=== PATIENT | female | born 1960 | race Caucasian/White ===

== ENCOUNTER 2020-12-29 18:36 | Inpatient (IN) | payer MEDICAID, SELFPAY ==
[~2020-12-29] VITALS: Ht 167.6 cm; Wt 84.8 kg
--- NOTE | 2020-12-29 18:36 | NUR ---
BROUGHT INTO TRIAGE ROOM AND TRIAGED, DR INMAN CALLED TO SEE PT IMMEDIATELY. PT HAVING SEVERE SOB. SATS ARE 85% ON RA, AUDIBLE WHEEZING. PT REFUSING TO WEAR A MASK STATING SHE HAD HER SHOTS. STATES "I'M NOT PUTTING ON A MASK, I CAN'T BREATHE"
[2020-12-29 18:37] VITALS: BP_SYST 187
--- NOTE | 2020-12-29 18:41 | NUR ---
RESPIRATORY CALLED TO TRIAGE ROOM. ORDERS PLACED BY DR INMAN.
[2020-12-29] MEDS ORDERED: IPRATROPIUM/ALBUTEROL SULFATE 3 ML AMPUL.NEB (DUONEB) INH ONE (18:45)
--- NOTE | 2020-12-29 18:45 | NUR ---
DR. INMAN TO TRIAGE TO ASSESS.
--- NOTE | 2020-12-29 18:55 | NUR ---
COVID SWAB OBTAINED AND SENT TO LAB FOR ANALYSIS.
--- NOTE | 2020-12-29 19:16 | NUR ---
Patient wheeled to bed 4 for evaluation and treatment
--- NOTE | 2020-12-29 19:17 | NUR ---
PT AAO BUT IS LETHARGIC AND WEAK. PT REPORTING WORSENING RESPIRATORY DISTRESS TODAY. PT IS A HEAVY SMOKER AND IS CURRENTLY WHEEZING AND TRIPODING. SPO2 WAS NOTED TO BE 85-88% IN TRIAGE. PT PLACED ON O2 AND RESPIRATORY ADMINISTED BREATHING TREATMENT IN TRIAGE. PT GOWNED AND ATTACHED TO [employer] SUPERINTENDENT.
--- NOTE | 2020-12-29 19:29 | NUR ---
Lab to triage for blood draw.
[2020-12-29] MEDS ORDERED: methylPREDNISolone SOD SUCC/PF 62.5 MG/ML VIAL IVP ONE ×3 (19:30→21:15)
[2020-12-29 19:37] LABS: BASOPHILS # (AUTO) 0.1 K/uL (0.0-0.2); BASOPHILS % (AUTO) 0.3 % (0.0-2.0); EOSINOPHILS # (AUTO) 0.4 K/uL (0.0-0.4); EOSINOPHILS % (AUTO) 1.9 % (0.0-4.0); HEMATOCRIT 46.2 % (36-48); LYMPHOCYTES # (AUTO) 5.1 K/uL (1.0-5.5); LYMPHOCYTES % (AUTO) 27.2 % (20.5-51.5); MEAN CORPUSCULAR HEMOGLOBIN 29 pg (27-31); MEAN CORPUSCULAR HGB CONC 33 % (32-36); MEAN CORPUSCULAR VOLUME 90 fL (79.0-98.0); MONOCYTES # (AUTO) 0.8 K/uL (0.0-1.0); MONOCYTES % (AUTO) 4.1 % (1.7-9.3); NEUTROPHILS # (AUTO) 12.5 K/uL (1.8-7.7); NEUTROPHILS % (AUTO) 66.5 % (40.0-70.0); PLATELET COUNT (AUTO) 342 K/uL (130-430); RED BLOOD CELL COUNT(AUTO) 5.14 MIL/uL (4.2-6.2); RED CELL DISTRIBUTION WIDTH 14.6 % (9.0-15.0); WHITE BLOOD COUNT (AUTO) 18.8 K/uL (4.8-10.8)
--- NOTE | 2020-12-29 19:40 | NUR ---
R.T. PLACED PT ON BIPAP 18/8 WITH BACK UP RATE OF 20 @ 100% O2. PT SPO2 AT 99-100%.
--- NOTE | 2020-12-29 19:50 | NUR ---
PORTABLE CXR DONE AT BEDSIDE.
[2020-12-29 19:57] LABS: CALCIUM 9.5 mg/dL (8.4-11.0); CREATININE 1.31 mg/dL (0.55-1.30); POTASSIUM 4.2 mmol/L (3.5-5.1)
[2020-12-29 20:00] LABS: PROTHROMBIN TIME 10.4 SECS (9.5-12.5)
[2020-12-29] MEDS ORDERED: methylPREDNISolone SOD SUCC/PF 62.5 MG/ML VIAL ONE (20:05)
[2020-12-29] MEDS ORDERED: AZITHROMYCIN 500 MG in NS 250 ML IV ONE (20:15)
--- NOTE | 2020-12-29 20:15 | NUR ---
# 16 FR Pierre catheter with use of sterile technique. Immediate return of 150 cc urine noted. Bedside drainage bag placed below level of bladder. Urine sample collected and sent to lab. Pt tolerated procedure WELL. Patient unable to toilet self.
[2020-12-29] MEDS ORDERED: AZITHROMYCIN 500 MG/VIAL (ZITHROMAX) IV ONE (20:23)
[2020-12-29] MEDS ORDERED: cefTRIAXone 2 GM VIAL ONE (20:23)
[2020-12-29 20:28] LABS: BILIRUBIN,URINE NEGATIVE (NEGATIVE); BLOOD, URINE 1+ (NEGATIVE); COLOR,URINE YELLOW (YELLOW); GLUCOSE,URINE TRACE (NEGATIVE); KETONES,URINE NEGATIVE (NEGATIVE); LEUKOCYTE ESTERASE ,URINE NEGATIVE (NEGATIVE); NITRITE, URINE NEGATIVE (NEGATIVE); PROTEIN URINE 3+ (NEGATIVE); UROBILINOGEN,URINE 0.2 (0.2-1.0)
[2020-12-29] MEDS ORDERED: FUROSEMIDE 40 MG/4 ML VIAL IVP ONE (20:30)
[2020-12-29 20:35] LABS: CLARITY/URINE SLIGHTLY HAZY (CLEAR)
[2020-12-29 20:46] LABS: BACTERIA,URINE MODERATE /HPF (None Seen); FINE GRANULAR CASTS,URINE 0-10 /LPF (None Seen); HYALINE CASTS, URINE 0-10 /LPF (None Seen); MUCUS,URINE 1+ /LPF (None Seen)
[2020-12-29] MEDS ORDERED: ASPIRIN 81 MG TAB.CHEW PO SCH (21:00)
[2020-12-29] MEDS ORDERED: *HEPARIN PER PHARMACY XX ONE (21:00)
[2020-12-29] MEDS ORDERED: HEPARIN SODIUM,PORCINE 5,000 UNITS/ML VIAL IVP ONE (21:00)
[2020-12-29] MEDS ORDERED: ALBUTEROL SULFATE 0.083% 2.5 MG/3 ML VIAL.NEB INH PRN (21:00)
--- NOTE | 2020-12-29 21:00 | NUR ---
ADMIT ORDERS RECEIVED FROM DR. PRICE. PT TO BE ADMITTED TO ICU.
--- NOTE | 2020-12-29 21:24 | NUR ---
Geraldine AT BEDSIDE FOR ABG.
--- NOTE | 2020-12-29 21:30 | NUR ---
ASPIRIN 162MG PO ADMINISTERED PER T.O. DR. PRICE. MEDICATION NOT COMING UP ON EMAR.
--- NOTE | 2020-12-29 21:35 | NUR ---
PT TAKEN OFF BIPAP AND PLACED ON 4L OF O2 PER NC. PT TOLERATING WELL. SPO2 HOLDING 91-92% WITH RR OF 25.
[2020-12-29] MEDS ORDERED: ASPIRIN 81 MG TAB.CHEW ONE (21:36)
--- NOTE | 2020-12-29 21:45 | NUR ---
LAB AT BEDSIDE FOR BLOOD DRAW (TROPONIN).
--- NOTE | 2020-12-29 22:00 | NUR ---
PT 9IS RESTING QUIETLY IN NO DISTRESS. PT IS TOLERATING 4L O2 PER NC. SPO2 HOLDING AT 93% WITH RR OF 20.
[2020-12-29] MEDS ORDERED: PANTOPRAZOLE SODIUM 40 MG/VIAL (PROTONIX) IVP ONE (22:30)
[2020-12-29] MEDS ORDERED: ACETAMINOPHEN 325 MG TABLET PO PRN (22:30)
[2020-12-29] MEDS ORDERED: IPRATROPIUM/ALBUTEROL SULFATE 3 ML AMPUL.NEB (DUONEB) INH PRN (22:30)
--- NOTE | 2020-12-29 22:40 | NUR ---
DR. PRICE DOWNGRADED PT TO TELE. ORDERS RECEIVED.
--- NOTE | 2020-12-29 22:41 | NUR ---
Spoke with Dr. Penaloza - change admission order to TELE.
--- NOTE | 2020-12-29 23:45 | NUR ---
Transfer to TELE via ACLS protocol. Licensed nurse present. IV present no signs or symptoms of infiltration.
--- NOTE | 2020-12-29 23:45 | NUR ---
Patient will be admitted to care of DR. PRICE. Admitted to TELE unit. Will go to room 130A. Belongings list completed. Complete and up to date summary report printed. SBAR report to be given at bedside with opportunity for questions.
[2020-12-30 00:05] VITALS: BP_SYST 142
--- NOTE | 2020-12-30 00:05 | NUR ---
ADMISSION NOTE Received patient from ER via lewralon, received report from CHARLEEN Mcdonough. Patient admitted with diagnosis of ACUTE RESPIRATORY DISTRESS, STEMI. Patient oriented to hospital routine, call light, toileting and safety-patient verbalized understanding.
--- NOTE | 2020-12-30 00:10 | NUR ---
INITIAL RN NOTES Received pt from ED, pt asleep easily awakens, VSS, afebrile. Pt denies SOB or Chest pain. O2 sat 96% on 4L NC. IV saline lock R. hand 20G clear and patent. Pierre catheter draining to gravity with clear, yellow urine, good output. Oriented pt to call light use, verbalized understanding. Call light within reach. Bed low, locked, siderails up x2, alarm on. To monitor.
[2020-12-30] MEDS: methylPREDNISolone SOD SUCC/PF 62.5 MG/ML VIAL IVP SCH ×5 (01:27→23:44)
[2020-12-30 06:32] LABS: BASOPHILS % (AUTO) 0.1 % (0.0-2.0); HEMATOCRIT 42.2 % (36-48); HEMOGLOBIN 13.8 g/dL (12.0-16.0); LYMPHOCYTES # (AUTO) 0.6 K/uL (1.0-5.5); LYMPHOCYTES % (AUTO) 3.9 % (20.5-51.5); MEAN CORPUSCULAR HEMOGLOBIN 29 pg (27-31); MEAN CORPUSCULAR HGB CONC 33 % (32-36); MEAN CORPUSCULAR VOLUME 88 fL (79.0-98.0); MONOCYTES # (AUTO) 0.1 K/uL (0.0-1.0); MONOCYTES % (AUTO) 0.6 % (1.7-9.3); NEUTROPHILS # (AUTO) 13.9 K/uL (1.8-7.7); NEUTROPHILS % (AUTO) 95.4 % (40.0-70.0); PLATELET COUNT (AUTO) 279 K/uL (130-430); RED CELL DISTRIBUTION WIDTH 14.4 % (9.0-15.0); WHITE BLOOD COUNT (AUTO) 14.5 K/uL (4.8-10.8)
--- NOTE | 2020-12-30 06:50 | NUR ---
Closing notes Pt asleep easily awakens, no c/o SOB or chest pain. O2 sat 96% on 4L NC. IV saline lock R. hand 20G clear and patent. Pierre catheter draining to gravity with clear, yellow urine, good output. Oriented pt to call light use, verbalized understanding. Call light within reach. Bed low, locked, siderails up x2, alarm on. To endorse to AM nurse.
--- NOTE | 2020-12-30 06:56 | NUR ---
Nutrition Update Fabricio Scale 18 noted. Pt admitted for SOB Diet: Cardiac BMI: 30.2 kg/m2 RD to follow per nutrition care standards.
[2020-12-30 07:10] LABS: CALCIUM 8.6 mg/dL (8.4-11.0); CREATININE 1.34 mg/dL (0.55-1.30); FREE T4 (FREE THYROXINE) 1.1 ng/dl (0.8-1.5); POTASSIUM 3.5 mmol/L (3.5-5.1); TOTAL BILIRUBIN 0.3 mg/dL (0.0-1.0)
--- NOTE | 2020-12-30 07:58 | NUR ---
Opening note patient resting in bed, a/ox4, denies pain, no distress, on 4L via nasal cannula, titrated down to 3L NC oxygen saturation is 96% at this time, IV line is patent, no s/s of infiltration, Pierre Catheter in place draining to gravity, educated patient on plan of care and call light system, she verbalized understanding, bed in lowest position, three side rails up, bed alarm on, fall and aspiration precautions in place.
--- NOTE | 2020-12-30 08:20 | NUR ---
Dr. Gonzales rounds assessed and spoke with patient at bedside, inquired if patient requires Heparin gtt, there is an order Heparin per pharmacy but no other Heparin orders, will follow up with any new orders.
[2020-12-30 08:23] VITALS: BP_SYST 152
[2020-12-30] MEDS: ASPIRIN 81 MG TABLET(ECOTRIN) PO SCH (08:25)
[2020-12-30] MEDS: PANTOPRAZOLE SODIUM 40 MG/VIAL (PROTONIX) IVP SCH ×2 (08:25→21:43)
--- NOTE | 2020-12-30 08:38 | NUR ---
Urine drug screen obtained from Pierre Catheter - sent to lab.
[2020-12-30 09:33] LABS: BARBITURATE, URINE NEGATIVE (NEG <=200); BENZODIAZEPINE, URINE NEGATIVE (NEG <=150); CANNABINOID, URINE NEGATIVE (NEG <=50); COCAINE, URINE NEGATIVE (NEG <=150); METHAMPHETAMINES SCREEN,URINE POSITIVE (NEG <=500); OPIATE, URINE NEGATIVE (NEG <=100); PHENCYCLIDINE SCREEN,URINE NEGATIVE (NEG <=25); UR TRICYCLIC ANTIDEPRESSANTS NEGATIVE (NEG <=300); URINE AMPHETAMINE POSITIVE (NEG <=500); URINE METHADONE NEGATIVE (NEG <=200); URINE OXYCODONE SCREEN NEGATIVE (NEG <=100); URINE PROPOXYPHENE SCREEN NEGATIVE (NEG <=300)
[2020-12-30] MEDS ORDERED: FUROSEMIDE 40 MG/4 ML VIAL IVP ONE (10:30)
[2020-12-30] MEDS ORDERED: METOPROLOL SUCCINATE 50 MG TAB.SR.24H (TOPROL XL) PO ONE (10:30)
[2020-12-30] MEDS: IPRATROPIUM/ALBUTEROL SULFATE 3 ML AMPUL.NEB (DUONEB) INH SCH ×3 (11:58→22:03)
[2020-12-30 14:51] VITALS: BP_SYST 154
[2020-12-30 16:00] VITALS: BP_SYST 143
--- NOTE | 2020-12-30 18:36 | NUR ---
Closing note, patient resting in bed, denies pain, no distress, on 3L via nasal cannula, IV line is patent, no s/s of infiltration, Pierre Catheter in place draining to gravity, all needs met, bed in lowest position, three side rails up, call light within reach, bed alarm on, fall and aspiration precautions in place.
--- NOTE | 2020-12-30 19:15 | NUR ---
OPENING NOTES: Received patient report from morning shift rn. Patient in bed, AAOx4, breathing evenly and nonlabored on 3L of O2 via NC, HOB elevated, no s/s of distress. Patient has an IV on the right hand, 20G, patent, benign, and flushing. No s/s of infection or infiltration. Patient has a quick catheter secured and draining by gravity. Educated patient on plan of care and call light use. Patient verbalized understanding with return demonstration. Fall/safety precaution. Will continue to monitor.
[2020-12-30 20:00] VITALS: BP_SYST 147
[2020-12-30] MEDS: cefTRIAXone 1 GM in D5W 50 ML IV SCH (21:44)
[2020-12-30] MEDS: AZITHROMYCIN 500 MG in NS 250 ML IV SCH (21:44)
[2020-12-31] VITALS: BP_SYST 138
--- NOTE | 2020-12-31 | NUR ---
ROUNDS: Patient in bed, eyes closed breathing evenly and nonlabored on 3L of O2 via NC, no s/s of distress. All needs met at this time. Will continue to monitor.
[2020-12-31] MEDS: methylPREDNISolone SOD SUCC/PF 62.5 MG/ML VIAL IVP SCH ×2 (06:00→11:46)
--- NOTE | 2020-12-31 06:52 | NUR ---
CLOSING NOTES: Patient in bed, eyes closed breathing evenly and nonlabored on 3L of O2 via NC, HOB elevated, no s/s of distress. Patient has an IV on the right hand, 20G, patent, benign, and flushing. No s/s of infection or infiltration. Patient has a quick catheter secured and draining by gravity. Fall/safety precaution. Will continue to monitor and endorse care to morning shift nurse.
[2020-12-31] MEDS: IPRATROPIUM/ALBUTEROL SULFATE 3 ML AMPUL.NEB (DUONEB) INH SCH ×5 (07:00→23:20)
[2020-12-31 07:12] LABS: HEMATOCRIT 39.9 % (36-48); LYMPHOCYTES # (AUTO) 0.8 K/uL (1.0-5.5); MEAN CORPUSCULAR HEMOGLOBIN 29 pg (27-31); MEAN CORPUSCULAR HGB CONC 33 % (32-36); MEAN CORPUSCULAR VOLUME 88 fL (79.0-98.0); MONOCYTES # (AUTO) 0.3 K/uL (0.0-1.0); MONOCYTES % (AUTO) 1.2 % (1.7-9.3); NEUTROPHILS # (AUTO) 26.3 K/uL (1.8-7.7); PLATELET COUNT (AUTO) 277 K/uL (130-430); RED BLOOD CELL COUNT(AUTO) 4.55 MIL/uL (4.2-6.2); RED CELL DISTRIBUTION WIDTH 14.4 % (9.0-15.0); WHITE BLOOD COUNT (AUTO) 27.5 K/uL (4.8-10.8)
--- NOTE | 2020-12-31 07:55 | NUR ---
Opening note patient resting in bed, a/ox4, denies pain, no distress, on 3L via nasal cannula, oxygen saturation is 97% at this time, IV line is patent, no s/s of infiltration, Pierre Catheter in place draining to gravity, educated patient on plan of care and call light system, she verbalized understanding, bed in lowest position, three side rails up, bed alarm on, fall and aspiration precautions in place.
[2020-12-31 08:00] VITALS: BP_SYST 148
[2020-12-31] MEDS: ASPIRIN 81 MG TABLET(ECOTRIN) PO SCH (08:17)
[2020-12-31] MEDS: METOPROLOL SUCCINATE 50 MG TAB.SR.24H (TOPROL XL) PO SCH (08:17)
[2020-12-31] MEDS: PANTOPRAZOLE SODIUM 40 MG/VIAL (PROTONIX) IVP SCH ×2 (08:17→20:16)
[2020-12-31] MEDS ORDERED: FUROSEMIDE 40 MG/4 ML VIAL IVP SCH (09:00)
[2020-12-31 10:25] LABS: ALBUMIN 2.8 g/dL (3.4-4.8); CALCIUM 8.6 mg/dL (8.4-11.0); CREATININE 1.32 mg/dL (0.55-1.30); POTASSIUM 3.5 mmol/L (3.5-5.1); TOTAL BILIRUBIN 0.2 mg/dL (0.0-1.0)
[2020-12-31 12:19] VITALS: BP_SYST 159
--- NOTE | 2020-12-31 14:28 | NUR ---
Dr. Tremaine stevens assessed patient, informed MD of positive Urine Culture Gram Negative Bacilli - susceptibility report pending. Informed MD that patient is now on 2L via nasal cannula oxygen saturation is 96%.
[2020-12-31 15:27] LABS: NEUTROPHILS % (AUTO) 95.8 % (40.0-70.0)
--- NOTE | 2020-12-31 15:40 | NUR ---
Ambulation on Room Air at rest on room air, patient's oxygen saturation is 95%, while ambulating on room air the oxygen saturation is 93%, at rest again oxygen saturations is 92-93%, patient is not short of breath.
[2020-12-31 16:30] VITALS: BP_SYST 146
[2020-12-31] MEDS: predniSONE 20 MG TABLET PO SCH (16:59)
--- NOTE | 2020-12-31 18:16 | NUR ---
D/C Pierre Catheter explained procedure to the patient, she verbalized understanding and tolerated well, catheter tip intact upon removal.
--- NOTE | 2020-12-31 19:15 | NUR ---
OPENING NOTES: Received patient report from morning shift nurse. Patient in bed AAOx4, breathing evenly and nonlabored on room air, HOB elevated, no s/s of distress. Patient has an IV on the right hand 20G, SL. No s/s of infection or infiltration. Educated patient on plan of care. Fall/safety precaution. Bed armed, locked, and at lowest position. Will continue to monitor.
--- NOTE | 2020-12-31 19:20 | NUR ---
Closing note SBAR report given to Noni VILLASEÑOR.
[2020-12-31 20:00] VITALS: BP_SYST 153
[2020-12-31] MEDS: FAMOTIDINE 20 MG TABLET PO SCH (20:16)
[2020-12-31] MEDS: cefTRIAXone 1 GM in D5W 50 ML IV SCH (20:16)
[2020-12-31] MEDS: AZITHROMYCIN 500 MG in NS 250 ML IV SCH (20:17)
[2021-01-01] VITALS: BP_SYST 143
--- NOTE | 2021-01-01 | NUR ---
IV INSERTION: Right hand 20G IV site infiltrated. Discontinued. Inserted a new IV on the right hand 22G, SL. No s/s of infection or infiltration.
--- NOTE | 2021-01-01 06:35 | NUR ---
CLOSING NOTES: Patient in bed, eyes closed, breathing evenly and nonlabored on room air, HOB elevated, no s/s of distress. Patient has an IV on the right hand 22G, SL. No s/s of infection or infiltration. Fall/safety precaution. Bed armed, locked, and at lowest position. Will continue to monitor and endorse care to morning shift nurse. All needs met at this time.
[2021-01-01 06:40] LABS: HEMATOCRIT 39.4 % (36-48); HEMOGLOBIN 13.1 g/dL (12.0-16.0); LYMPHOCYTES # (AUTO) 1.4 K/uL (1.0-5.5); LYMPHOCYTES % (AUTO) 5.8 % (20.5-51.5); MEAN CORPUSCULAR HEMOGLOBIN 29 pg (27-31); MEAN CORPUSCULAR HGB CONC 33 % (32-36); MEAN CORPUSCULAR VOLUME 87 fL (79.0-98.0); MONOCYTES # (AUTO) 0.8 K/uL (0.0-1.0); MONOCYTES % (AUTO) 3.3 % (1.7-9.3); NEUTROPHILS # (AUTO) 21.5 K/uL (1.8-7.7); NEUTROPHILS % (AUTO) 90.9 % (40.0-70.0); PLATELET COUNT (AUTO) 292 K/uL (130-430); RED BLOOD CELL COUNT(AUTO) 4.54 MIL/uL (4.2-6.2); RED CELL DISTRIBUTION WIDTH 14.4 % (9.0-15.0); WHITE BLOOD COUNT (AUTO) 23.7 K/uL (4.8-10.8)
[2021-01-01] MEDS: IPRATROPIUM/ALBUTEROL SULFATE 3 ML AMPUL.NEB (DUONEB) INH SCH ×5 (07:00→23:20)
[2021-01-01 07:04] LABS: CALCIUM 8.6 mg/dL (8.4-11.0); CREATININE 1.28 mg/dL (0.55-1.30); POTASSIUM 3.3 mmol/L (3.5-5.1)
--- NOTE | 2021-01-01 07:15 | NUR ---
RN OPENING NOTE PATIENT APPEARS TO BE RESTING WITH BOTH EYES CLOSED NO SIGNS OF ANY DISTRESS. BREATHING IS EQUAL AND NON LABORED. REPORT WAS ENDORSED BY NIGHT NURSE. NO OTHER NEEDS AT THIS TIME. PATIENT HAS ALL SAFETY PRECAUTIONS IN PLACE.
[2021-01-01 08:04] VITALS: BP_SYST 150
[2021-01-01] MEDS: predniSONE 20 MG TABLET PO SCH ×2 (08:09→17:52)
[2021-01-01] MEDS: ASPIRIN 81 MG TABLET(ECOTRIN) PO SCH (08:09)
[2021-01-01] MEDS: FAMOTIDINE 20 MG TABLET PO SCH ×2 (08:09→21:21)
[2021-01-01] MEDS: METOPROLOL SUCCINATE 50 MG TAB.SR.24H (TOPROL XL) PO SCH (08:09)
[2021-01-01] MEDS: PANTOPRAZOLE SODIUM 40 MG/VIAL (PROTONIX) IVP SCH ×2 (08:10→21:20)
--- NOTE | 2021-01-01 08:17 | NUR ---
MEDICATION PATIENTS SCHEDULED MEDICATION GIVEN PER ORDER. PATIENT IS AWAKE AND ALERT SITTING UP IN BED EATING BREAKFAST. PATIENT HAS NO COMPLAINTS AT THIS TIME. PATIENT SHOWS NO SIGNS OF ANY SOB. PATIENT EDUCATE CARETAKER LIGHT, CALL LIGHT IS WITH PATIENT. NO OTHER NEEDS AT THIS TIME. Addendum: 01/01/21 at 0819 by Mireya Arellano RN EDUCATED TO USE CALL LIGHT FOR ASSISTANCE TO BATHROOM PATIENT VERBALIZED UNDERSTANDING.
--- NOTE | 2021-01-01 11:00 | NUR ---
INFORMED OF ELEVATED TROPONIN NO FURTHER ORDERS WERE GIVEN. PATIENT IS AWAKE AND ALERT LAYING IN BED. PATIENT AMBULATED TO BATHROOM AND BACK TO BED GAIT IS STEADY. EDUCATED TO USE CALL LIGHT FOR ASSISTANCE. CALL LIGHT IS WITH HER. NO OTHER NEEDS AT THIS TIME.
[2021-01-01 12:00] VITALS: BP_SYST 144
[2021-01-01] MEDS ORDERED: POTASSIUM CHLORIDE 20 MEQ TAB.PRT.SR PO ONE (13:00)
--- NOTE | 2021-01-01 14:30 | NUR ---
MEDICATION PATIENTS SCHEDULED MEDICATION GIVEN PER ORDER. PATIENT IS AWAKE AND ALERT SITTING IN BED. PATIENT HAS NO COMPLAINTS AT THIS TIME. CALL LIGHT IS WITH HER EDUCATED TO USE FOR ASSISTANCE.CALL LIGHT IS WITH HER. NO OTHER NEEDS AT THIS TIME.
[2021-01-01 16:00] VITALS: BP_SYST 143
--- NOTE | 2021-01-01 16:00 | NUR ---
rn rounding patient is laying in bed no signs of any distress, breathing is equal and non labored. Patient has all safety precautions in place. educated to use call light for assistance. call light is with her. no other needs at this time.
--- NOTE | 2021-01-01 18:54 | NUR ---
rn closing note patient is awake and alert no signs of any distress, breathing is equal and non labored. patient has all safety precautions in place. call light is with her educated to use for assistance. no other needs at this time.
--- NOTE | 2021-01-01 19:40 | NUR ---
OPENING NOTES PATIENT SITTING IN BED WITH RESPIRATIONS EVEN AND UNLABORED ON RA. NO SIGNS OF DISTRESS NOTED. PT IS AMBULATORY AND JUST FINISHED WALKING BACK FROM THE RESTROOM. GAIT STEADY. LINENS CHANGED. RIGHT HAND 22G DRESSING CLEAN, DRY AND INTACT. SALINE LOCKED. BED IN LOWEST AND LOCKED POSITION. CALL LIGHT WITHIN REACH. SAFETY PRECAUTIONS IN PLACE. WILL CONTINUE TO MONITOR.
[2021-01-01 20:20] VITALS: BP_SYST 146
[2021-01-01] MEDS: AZITHROMYCIN 500 MG in NS 250 ML IV SCH (21:21)
[2021-01-01] MEDS: cefTRIAXone 1 GM in D5W 50 ML IV SCH (21:22)
[2021-01-02 00:22] VITALS: BP_SYST 159
[2021-01-02] MEDS: IPRATROPIUM/ALBUTEROL SULFATE 3 ML AMPUL.NEB (DUONEB) INH SCH ×4 (03:00→15:00)
--- NOTE | 2021-01-02 03:39 | NUR ---
ROUNDS PATIENT SLEEPING IN BED. RESPIRATIONS EVEN AND UNLABORED ON RA. NO SIGNS OF DISTRESS NOTED. BED IN LOWEST AND LOCKED POSITION. CALL LIGHT WITHIN REACH. RIGHT HAND IV SALINE LOCKED. WILL CONTINUE TO MONITOR.
--- NOTE | 2021-01-02 06:40 | NUR ---
CLOSING NOTES PATIENT SLEEPING IN BED WITH RESPIRATIONS EVEN AND UNLABORED ON RA. NO SIGNS OF DISTRESS NOTED. RIGHT HAND 22G IV PATENT AND INTACT. NO SIGNS OF INFILTRATION NOTED. ALL NEEDS MET THROUGH THE NIGHT. BED IN LOWEST AND LOCKED POSITION. CALL LIGHT WITHIN REACH. SAFETY PRECAUTIONS IN PLACE. WILL ENDORSE TO DAY RN.
[2021-01-02 07:04] LABS: CALCIUM 8.5 mg/dL (8.4-11.0); CREATININE 1.31 mg/dL (0.55-1.30); POTASSIUM 4.2 mmol/L (3.5-5.1)
[2021-01-02 07:49] LABS: BASOPHILS # (AUTO) 0.2 K/uL (0.0-0.2); BASOPHILS % (AUTO) 1.1 % (0.0-2.0); HEMOGLOBIN 12.9 g/dL (12.0-16.0); LYMPHOCYTES # (AUTO) 2.4 K/uL (1.0-5.5); LYMPHOCYTES % (AUTO) 13.2 % (20.5-51.5); MEAN CORPUSCULAR HEMOGLOBIN 29 pg (27-31); MEAN CORPUSCULAR HGB CONC 33 % (32-36); MEAN CORPUSCULAR VOLUME 88 fL (79.0-98.0); MONOCYTES # (AUTO) 0.9 K/uL (0.0-1.0); MONOCYTES % (AUTO) 5.2 % (1.7-9.3); NEUTROPHILS # (AUTO) 14.4 K/uL (1.8-7.7); NEUTROPHILS % (AUTO) 80.5 % (40.0-70.0); PLATELET COUNT (AUTO) 275 K/uL (130-430); RED BLOOD CELL COUNT(AUTO) 4.44 MIL/uL (4.2-6.2); RED CELL DISTRIBUTION WIDTH 14.7 % (9.0-15.0); WHITE BLOOD COUNT (AUTO) 17.9 K/uL (4.8-10.8)
[2021-01-02] MEDS: PANTOPRAZOLE SODIUM 40 MG/VIAL (PROTONIX) IVP SCH (09:05)
[2021-01-02] MEDS: ASPIRIN 81 MG TABLET(ECOTRIN) PO SCH (09:06)
[2021-01-02] MEDS: predniSONE 20 MG TABLET PO SCH (09:06)
[2021-01-02] MEDS: METOPROLOL SUCCINATE 50 MG TAB.SR.24H (TOPROL XL) PO SCH (09:06)
[2021-01-02] MEDS: FAMOTIDINE 20 MG TABLET PO SCH (09:06)
--- NOTE | 2021-01-02 09:07 | NUR ---
OPENING NOTES PATIENT AAO 4. LUNGS BILATERALLY CLEAR. ABDOMEN SOFT AND NON DISTENDED. HAS IV ACCESS ON THE RIGHT HAND #22. SALINE LOCK. PATENT/DRY. CALL LIGHTS WITHIN REACH. BED LOW POSITION ALARMED AND LOCKED.
--- NOTE | 2021-01-02 09:12 | NUR ---
SEEN BY DR LE
[2021-01-02 09:17] VITALS: BP_SYST 155
[2021-01-02] MEDS ORDERED: PRED10TA PO (11:14)
[2021-01-02] MEDS ORDERED: Aspirin Ec PO (11:14)
[2021-01-02 11:52] VITALS: BP_SYST 150
[2021-01-02 12:10] VITALS: BP_SYST 150
--- NOTE | 2021-01-02 12:28 | NUR ---
Referral for home health sent to [facility] Addendum: 01/02/21 at 1237 by Noemy Araiza RN Referral also sent to [facility]
[2021-01-02 14:22] VITALS: BP_SYST 150
--- NOTE | 2021-01-02 14:30 | NUR ---
PER [facility] RISK CONTROL CONSULTANT, PATIENT CAN GO HOME AND INFORMED THE PATIENT. DISCHARGE SUMMARY INSTRUCTION GIVEN TO THE PATIENT AND VERBALIZED SHE UNDERSTOOD, TO FOLLOW UP CARE WITH PCP, CARDIOLOGY, PULMONARY MD TO SCHEDULE WITHIN ONE WEEK. PRESCRIPTION OF ASPIRIN PO AND PREDNISONE PO, WAS EXPLAINED TO THE PATIENT, INDICATION, DOSE AND FREQUENCY AND CONTINUE ALL OHTER MEDICATION. FOLLOW UP ALSO WITH HOME HEALTH AND NEBULIZER.
--- NOTE | 2021-01-02 15:00 | NUR ---
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 REFUSED TO EAT LUNCH. REFUSED TO HAVE WHEELCHAIR WHILE GOING TO THE LOBBY. [facility] I D BAND REMOVED. IV ACCESS REMOVED. DISCHARGE INSTRUCTIONS GIVEN TO THE PATIENT AND VERBALIZED I DO UNDERSTOOD WHAT U SAID.
--- NOTE | 2021-01-02 18:01 | NUR ---
Patient to have Home Health and nebulizer provided by [facility]. She is anxious to go home. Verified address and phone # [phone]. Nebulizer [facility] be delivered by [facility] [facility] [address] [place], [address].
== END 2021-01-02 15:00 | disposition home health service (06) | DRG 720 ==
LOC: SED 18:36 → SIC 20:55 → STU 23:10
PROVIDERS: ADMIT Internal Medicine; ATTEND Internal Medicine
PROC: 5A09357 Assistance with Respiratory Ventilation, Less than 24 Consecutive Hours, Continuous Positive Airway Pressure (ICD-10-PCS; principal; 2020-12-29)
DX: A41.9 Sepsis, unspecified organism (principal); J96.20 Acute and chronic respiratory failure, unspecified whether with hypoxia or hypercapnia; I21.4 Non-ST elevation (NSTEMI) myocardial infarction; I50.43 Acute on chronic combined systolic (congestive) and diastolic (congestive) heart failure; J15.9 Unspecified bacterial pneumonia; E44.1 Mild protein-calorie malnutrition; I11.0 Hypertensive heart disease with heart failure; J44.1 Chronic obstructive pulmonary disease with (acute) exacerbation; I24.8 Other forms of acute ischemic heart disease; F17.200 Nicotine dependence, unspecified, uncomplicated; E66.9 Obesity, unspecified; E11.9 Type 2 diabetes mellitus without complications; E87.6 Hypokalemia; F15.10 Other stimulant abuse, uncomplicated; Z20.822 Contact with and (suspected) exposure to COVID-19; Z88.5 Allergy status to narcotic agent; Z68.30 Body mass index [BMI] 30.0-30.9, adult
CPT/HCPCS: 36415; 71045; 80048; 80053; 80307; 81000; 82803-TC; 83051; 83605; 83880; 84439; 84484; 85025; 85379; 85610-TC; 85730-TC; 87040-TC; 87086; 93005; 93306; 93970; 94640; 94660; 94760; 96365; 96367; 96375; 96376; 97110-GP; 97116-GP; 97530-GP; 99291; C9113; G0378; J0456; J0696; J1644; J1940; J2930; J7050; J7060; J7512